=== PATIENT | male | born 1970 | race Caucasian/White ===

== ENCOUNTER 2024-01-28 05:50 | Inpatient (IN) | payer OTHER ==
[~2024-01-28] VITALS: Ht 167.6 cm; Wt 97.5 kg
[2024-01-28] MEDS ORDERED: CEFAZOLIN SOD 2 GM in D5W 50 ML IV ONE (07:00)
[2024-01-28 07:09] VITALS: O2SAT 98
[2024-01-28] MEDS ORDERED: ceFAZolin SODIUM 1 GM VIAL ONE (07:15)
[2024-01-28] MEDS ORDERED: ceFAZolin SODIUM 2 GM VIAL ONE (07:15)
[2024-01-28] MEDS ORDERED: HYDROmorphone 2 MG/ML VIAL ONE (07:20)
[2024-01-28] MEDS ORDERED: ONDANSETRON HCL 4 MG/2 ML VIAL IVP PRN (08:30)
[2024-01-28] MEDS ORDERED: METOCLOPRAMIDE HCL 10 MG/2 ML VIAL IVP PRN (08:30)
[2024-01-28] MEDS ORDERED: NALOXONE HCL 0.4 MG/ML AMP (NARCAN) IVP PRN ×4 (08:30→09:00)
[2024-01-28] MEDS ORDERED: MEPERIDINE HCL/PF 25 MG/ML DISP.SYRIN IVP PRN (08:30)
[2024-01-28] MEDS ORDERED: HYDROmorphone 1 MG/ML INJ. CARTRIDGE IVP PRN ×2 (08:30)
[2024-01-28] MEDS ORDERED: HYDROcodone/ACETAMIN 5-325 MG TAB (NORCO/ VICODIN) PO PRN ×2 (09:00)
[2024-01-28] MEDS ORDERED: D5/0.45 NS 1,000 ML IV SCH (09:00)
[2024-01-28 13:04] VITALS: BP_SYST 120; PULSE 105; RESP 16
== END 2024-01-28 12:05 | disposition home or self-care (01) | DRG 419 ==
LOC: SMU 05:50 → EDSTATUS 07:30
PROVIDERS: ADMIT Colon & Rectal Surgery; ATTEND Colon & Rectal Surgery
PROC: BF121ZZ Fluoroscopy of Gallbladder using Low Osmolar Contrast (ICD-10-PCS; 2024-01-28)
PROC: 0FT44ZZ Resection of Gallbladder, Percutaneous Endoscopic Approach (ICD-10-PCS; principal; 2024-01-28 07:34)
DX: K80.10 Calculus of gallbladder with chronic cholecystitis without obstruction (principal)
CPT/HCPCS: 76000; 87081; 88304; C1727; J0330; J0690; J1100; J1170; J2405; J2704; J2765; J3010; J3370; J3465; J3490; J7030; J7060; J7120; Q9966